=== PATIENT | female | born 1980 ===

== ENCOUNTER 2017-05-01 22:11 | Inpatient (IN) | payer OTHER ==
[2017-05-01 23:04] LABS: URINE BACTERIA RARE (<OCC); URINE BILIRUBIN NEGATIVE (NEGATIVE); URINE BLOOD MODERATE (NEGATIVE); URINE COLOR YELLOW (YELLOW); URINE GLUCOSE (UA) NEG (Normal); URINE KETONE NEGATIVE (NEGATIVE); URINE LEUKOCYTE ESTERASE SMALL Leu/uL (Negative); URINE PROTEIN NEGATIVE (NEGATIVE); URINE UROBILINOGEN 0.2-1.0 mg/dL (0.2-1.0); WBC URINE 11 /hpf (0-5)
[2017-05-01 23:11] LABS: RBC URINE 15 /hpf (0-3)
[2017-05-01 23:18] LABS: BASO % 0.5 % (0.0-2.0); EOS # 0.4 K/uL (0.0-0.7); EOS % 3.7 % (0.0-4.0); HEMATOCRIT 39.5 % (34.0-47.0); LYMPH # 2.8 K/uL (1.0-4.3); LYMPH % 27.3 % (20.0-40.0); MEAN CELL VOLUME 93.9 fl (81.0-99.0); MEAN CORPUSCULAR HEMOGLOBIN 31.2 pg (27.0-31.0); MEAN CORPUSCULAR HGB CONC 33.2 g/dL (33.0-37.0); MEAN PLATELET VOLUME 6.5 fl (7.2-11.7); MONO # 0.7 K/uL (0.0-0.8); MONO % 6.8 % (0.0-10.0); NEUT # 6.3 K/uL (1.8-7.0); NEUT % 61.7 % (50.0-75.0); RED CELL DISTRIBUTION WIDTH 13.2 % (11.5-14.5); WHITE BLOOD COUNT 10.2 K/uL (4.8-10.8)
[2017-05-01 23:23] LABS: ALCOHOL SERUM < 10 mg/dl (0-10)
[2017-05-01 23:25] LABS: PARTIAL THROMBOPLASTIN TIME 26.9 Seconds (25.6-37.1)
[2017-05-01 23:27] LABS: ALB/GLOB RATIO 1.3 (1.0-2.1); ALKALINE PHOSPHATASE 62 U/L (38-126); ALT/SGPT 33 U/L (9-52); AST/SGOT 29 U/L (14-36); BILIRUBIN,TOTAL 0.4 mg/dl (0.2-1.3); BLOOD UREA NITROGEN 14 mg/dl (7-17); CALCIUM 8.9 mg/dL (8.4-10.2); CARBON DIOXIDE 25 mmol/L (22-30); CHLORIDE 106 mmol/L (98-107); GFR AFRICAN-AMERICAN > 60; GLUCOSE,RANDOM 122 mg/dL (65-105); MAGNESIUM 1.9 MG/DL (1.6-2.3); PHOSPHOROUS 3.3 mg/dl (2.5-4.5); SODIUM 139 mmol/l (132-148); TOTAL PROTEIN 7.4 G/DL (6.3-8.2)
--- NOTE | 2017-05-01 23:28 | ED PDOC ---
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 Patient states she ingested a "handful" of Seroquel after arguing with her . States they were left over after being prescribed for insomnia and confirms that at the time she was suicidal. (+) "heart racing" and feeling very sleepy. (-) SOB, chest pain, nausea, vomiting, or hallucinations. Denies taking any other medications, nor drug/alcohol use. Of note, patient previously attempted suicidal when initially diagnosed with depression. PCP: Does not have PCP, but [facility] Past Medical History Reviewed: Historical Data, Nursing Documentation, Vital Signs Vital Signs: Last Vital Signs Temp 98.0 F 05/01/17 22:16 Pulse 125 H 05/01/17 22:16 Resp 20 05/01/17 22:16 BP 125/66 05/01/17 22:16 Pulse Ox 98 05/01/17 22:16 - Medical History PMH: Kidney Stones Denies: No Chronic Diseases, Diabetes, Hepatitis, HIV, HTN, Seizures, Sexually Transmitted Disease - Surgical History Surgical History: No Surg Hx - Family History Family History: States: Diabetes - Living Arrangements Living Arrangements: With Family - Social History Current smoker - smoking cessation education provided: No Ex-Smoker (has not smoked in the last 12 months): No Alcohol: Social (Last drank 2 days ago) Drugs: Prescription medications - Immunization History Hx Influenza Vaccination: No Hx Pneumococcal Vaccination: No - Home Medications Home Medications: Ambulatory Orders Medication Instructions Recorded No Known Home Med 09/12/15 - Allergies Allergies/Adverse Reactions: Allergies Allergy/AdvReac Type Severity Reaction Status Date / Time No Known Allergies Allergy Verified 09/12/15 12:36 Review of Systems ROS Statement: Except As Marked, All Systems Reviewed And Found Negative Constitutional: Positive for: Other ((+) "very sleepy") Cardiovascular: Positive for: Palpitations ("heart racing"). Negative for: Chest Pain Respiratory: Negative for: Shortness of Breath Gastrointestinal: Negative for: Nausea, Vomiting Psych: Positive for: Depression, Suicidal ideation. Negative for: Other ((-) hallucinations) Physical Exam - Reviewed Nursing Documentation Reviewed: Yes - Physical Exam Appears: Positive for: No Acute Distress (sleepy) Head Exam: Positive for: ATRAUMATIC, NORMOCEPHALIC Skin: Positive for: Warm, Dry Eye Exam: Positive for: EOMI, PERRL, Conjunctival injection ENT: Positive for: Pharynx Is (clear) Neck: Positive for: Painless ROM, Supple Cardiovascular/Chest: Positive for: Regular Rate, Rhythm, Tachycardia (regular rhythm). Negative for: Murmur Respiratory: Positive for: Normal Breath Sounds. Negative for: Wheezing, Respiratory Distress Gastrointestinal/Abdominal: Positive for: Soft. Negative for: Tenderness, Mass , Distended, Guarding Back: Positive for: Normal Inspection. Negative for: Decreased ROM Extremity: Positive for: Normal ROM. Negative for: Deformity Lymphatic: Negative for: Adenopathy Neurologic/Psych: Positive for: Oriented (x3), Mood/Affect (depressed mood and affect), Other (Sleepy but easily arousable and able to maintain conversation). Negative for: Motor/Sensory Deficits - Laboratory Results Result Diagrams: 05/03/17 05:30 05/03/17 05:30 - ECG ECG: Positive for: Interpreted By Me ECG Rhythm: Positive for: Normal QRS, Normal ST Segment, Sinus Rhythm O2 Sat by Pulse Oximetry: 98 (RA) Pulse Ox Interpretation: Normal - Critical Care Total Time (In Min): 30 Documented Critical Care: Time excludes all time spent performint seperately billable procedures Medical Decision Making Medical Decision Makin Initial impression: suicidal attempt and Risperdal overdose Initial plan: * EKG * Acetaminophen * EtOH serum * UDrug screen * Magnesium * Phosphorus * Salicylate * Poison control consult * UPreg * UDip * PTT/PT * UCx * 1:1 OBS * UA * Re-eval Pt with overdose of sedative. Poison recommends caution for seizure activity and deep lethargy. Labs unremarkable Needs hospitalization for observation and inpatient psych consult. [facility] for hospitalization. [facility] pt findings and plan of care. [id number] Pt suddenly became very lethargic and heart rate decreased to 60s and SBP to 60s. Pt reports that she just feels like her head feels funny. Denies pain. Appears pale. Just prior to this she reported hunger and was asking to eat. IVF ordered and pt placed in Trendelenberg with improvement of vitals. Possible syncopal episode. [facility] Banks Hospitalist for ICU placement. [facility] again who advises continue supportive treatment. Asked and patient again if any other meds taken or accessible and both deny. Scribe Attestation: Documented by Basia Hunt acting as a scribe for Anne Belle MD. Scribe Attestation: All medical record entries made by the Scribe were at my direction and personally dictated by me. I have reviewed the chart and agree that the record accurately reflects my personal performance of the history, physical exam, medical decision making, and the department course for this patient. I have also personally directed, reviewed, and agree with the discharge instructions and disposition. Disposition - Clinical Impression Clinical Impression: Sedative overdose, Suicidal overdose, Depression Counseled Patient/Family Regarding: Studies Performed, Diagnosis - Disposition Disposition Time: 23:00 Condition: CRITICAL - Pt Status Changed To: Hospital Disposition Of: Observation - POA Present On Arrival: None
--- NOTE | 2017-05-02 | CP.PCM.CON ---
History of Present Illness - History of Present Illness History of Present Illness: Attending: Juan Miguel Lilly MD Chief Complaint: Drug Overdose The patient was seen and examined in the Ed HPI: The hx was obtained from the patient, her and after review of the medical records. She is a 37 years old female with hx of depression and prior suicide attempt, brought to the ED after she overdosed on Seroquel. The referred that he called the Police after an argument with his . When the police left, she ingested a handful of Seroquel in a suicidal attempt. She became very somnolent with unsteady gait. No vomits nor chest pain. In the ED she was initially tachycardic but suffered an episode of abrupt Bradycardia with HR in 60s and SBP 60s with the patient becoming lethargic. She was given Bolus Normal saline and BP improved. PMH: Kidney Stones; Depressive disorder PSH: denies Surgeries SH: No illegal drug use; Never Smoked; occasional Alcohol; Works at [employer] FH: Mother with DM Allergies: NKDA Seasonal Allergies Medication: Has not been taking medication for over 6 months PCP: Does not have PCP, but sees doctor present at [facility] Review of Systems - Review of Systems Review of Systems: Review of system is limited because of the patient condition Past Patient History - Infectious Disease Hx of Infectious Diseases: None - Past Social History Smoking Status: Never Smoked Chewing Tobacco Use: No Cigar Use: No Alcohol: Social (Last drank 2 days ago) Drugs: Prescription medications, Inhalants Home Situation {Lives}: Alone - CARDIAC Hx Cardiac Disorders: No Hx Hypertension: No - PULMONARY Hx Respiratory Disorders: No Hx Tuberculosis: No - NEUROLOGICAL Hx Seizures: No - HEENT Hx HEENT Problems: No - RENAL Hx Kidney Stones: Yes - ENDOCRINE/METABOLIC Hx Endocrine Disorders: No - HEMATOLOGICAL/ONCOLOGICAL Hx Blood Disorders: No Hx Human Immunodeficiency Virus (HIV): No - INTEGUMENTARY Hx Dermatological Problems: No - MUSCULOSKELETAL/RHEUMATOLOGICAL Hx Musculoskeletal Disorders: No - GASTROINTESTINAL Hx Gastrointestinal Disorders: No - GENITOURINARY/GYNECOLOGICAL Hx Genitourinary Disorders: No Hx Sexually Transmitted Disorders: No - PSYCHIATRIC Hx Depression: Yes Hx Substance Use: No - SURGICAL HISTORY Hx Surgeries: No - ANESTHESIA Hx Anesthesia: No Meds Allergies/Adverse Reactions: Allergies Allergy/AdvReac Type Severity Reaction Status Date / Time No Known Allergies Allergy Verified 09/12/15 12:36 - Medications Medications: Current Medications Lorazepam (Ativan) 1 mg IVP Q4H PRN PRN Reason: Seizure activity Physical Exam - Constitutional Appears: No Acute Distress - Head Exam Head Exam: ATRAUMATIC, NORMAL INSPECTION, NORMOCEPHALIC - Eye Exam Eye Exam: EOMI, Normal appearance Pupil Exam: NORMAL ACCOMODATION, PERRL - ENT Exam ENT Exam: Mucous Membranes Moist, Normal Exam - Neck Exam Neck exam: Positive for: Full Rom, Normal Inspection. Negative for: Tenderness - Respiratory Exam Respiratory Exam: Clear to Auscultation Bilateral. absent: Rales, Rhonchi, Wheezes - Cardiovascular Exam Cardiovascular Exam: REGULAR RHYTHM, RRR, +S1, +S2. absent: Gallop, JVD - GI/Abdominal Exam GI & Abdominal Exam: Normal Bowel Sounds, Soft. absent: Mass, Organomegaly, Tenderness - Rectal Exam Rectal Exam: Deferred - Extremities Exam Extremities exam: Positive for: full ROM, normal inspection. Negative for: calf tenderness, pedal edema - Back Exam Back exam: NORMAL INSPECTION. absent: CVA tenderness (L), CVA tenderness (R) - Neurological Exam Neurological exam: Alert, CN II-XII Intact, Oriented x3, Reflexes Normal - Psychiatric Exam Psychiatric exam: Normal Affect, Normal Mood - Skin Skin Exam: Dry, Intact, Normal Color, Warm Results - Vital Signs Recent Vital Signs: Last Vital Signs Temp 98.0 F 05/01/17 22:16 Pulse 125 H 05/01/17 22:16 Resp 20 05/01/17 22:16 BP 125/66 05/01/17 22:16 Pulse Ox 98 05/01/17 23:52 - Labs Result Diagrams: 05/01/17 23:00 05/01/17 23:00 Labs: Laboratory Results - last 24 hr 05/01/17 05/01/17 05/01/17 22:37 22:37 23:00 WBC RBC Hgb Hct MCV MCH MCHC RDW Plt Count MPV Neut % (Auto) Lymph % (Auto) [place] % (Auto) Eos % (Auto) Baso % (Auto) Neut # Lymph # [place] # Eos # Baso # PT INR APTT Sodium 139 Potassium 4.0 Chloride 106 Carbon Dioxide 25 Anion Gap 12 BUN 14 Creatinine 0.7 Est GFR ( Amer) > 60 Est GFR (Non-Af Amer) > 60 POC Glucose (mg/dL) Random Glucose 122 H Calcium 8.9 Phosphorus 3.3 Magnesium 1.9 Total Bilirubin 0.4 AST 29 ALT 33 Alkaline Phosphatase 62 Total Protein 7.4 Albumin 4.1 Globulin 3.3 Albumin/Globulin Ratio 1.3 Urine Color Yellow Urine Clarity Slighty-cloudy Urine pH 6.0 Ur Specific [place] 1.020 Urine Protein Negative Urine Glucose (UA) Neg Urine Ketones Negative Urine Blood Moderate Urine Nitrate Negative Urine Bilirubin Negative Urine Urobilinogen 0.2-1.0 Ur Leukocyte Esterase Small Urine RBC (Auto) 15 H Urine Microscopic WBC 11 H Ur Squamous Epith Cells 2 Urine Bacteria Rare Salicylates Urine Opiates Screen Negative Urine Methadone Screen Negative Acetaminophen Ur Barbiturates Screen Negative Ur Phencyclidine Scrn Negative Ur Amphetamines Screen Negative U Benzodiazepines Scrn Negative U Oth Cocaine Metabols Negative U Cannabinoids Screen Negative Alcohol, Quantitative < 10 05/01/17 05/01/17 05/01/17 23:00 23:00 23:00 WBC 10.2 RBC 4.20 Hgb 13.1 Hct 39.5 MCV 93.9 MCH 31.2 H MCHC 33.2 RDW 13.2 Plt Count 239 MPV 6.5 L Neut % (Auto) 61.7 Lymph % (Auto) 27.3 [place] % (Auto) 6.8 Eos % (Auto) 3.7 Baso % (Auto) 0.5 Neut # 6.3 Lymph # 2.8 [place] # 0.7 Eos # 0.4 Baso # 0.0 PT 10.5 INR 1.0 APTT 26.9 Sodium Potassium Chloride Carbon Dioxide Anion Gap BUN Creatinine Est GFR ( Amer) Est GFR (Non-Af Amer) POC Glucose (mg/dL) Random Glucose Calcium Phosphorus Magnesium Total Bilirubin AST ALT Alkaline Phosphatase Total Protein Albumin Globulin Albumin/Globulin Ratio Urine Color Urine Clarity Urine pH Ur Specific [place] Urine Protein Urine Glucose (UA) Urine Ketones Urine Blood Urine Nitrate Urine Bilirubin Urine Urobilinogen Ur Leukocyte Esterase Urine RBC (Auto) Urine Microscopic WBC Ur Squamous Epith Cells Urine Bacteria Salicylates < 1.0 Urine Opiates Screen Urine Methadone Screen Acetaminophen < 10.0 L Ur Barbiturates Screen Ur Phencyclidine Scrn Ur Amphetamines Screen U Benzodiazepines Scrn U Oth Cocaine Metabols U Cannabinoids Screen Alcohol, Quantitative 05/01/17 23:53 WBC RBC Hgb Hct MCV MCH MCHC RDW Plt Count MPV Neut % (Auto) Lymph % (Auto) [place] % (Auto) Eos % (Auto) Baso % (Auto) Neut # Lymph # [place] # Eos # Baso # PT INR APTT Sodium Potassium Chloride Carbon Dioxide Anion Gap BUN Creatinine Est GFR ( Amer) Est GFR (Non-Af Amer) POC Glucose (mg/dL) 91 Random Glucose Calcium Phosphorus Magnesium Total Bilirubin AST ALT Alkaline Phosphatase Total Protein Albumin Globulin Albumin/Globulin Ratio Urine Color Urine Clarity Urine pH Ur Specific [place] Urine Protein Urine Glucose (UA) Urine Ketones Urine Blood Urine Nitrate Urine Bilirubin Urine Urobilinogen Ur Leukocyte Esterase Urine RBC (Auto) Urine Microscopic WBC Ur Squamous Epith Cells Urine Bacteria Salicylates Urine Opiates Screen Urine Methadone Screen Acetaminophen Ur Barbiturates Screen Ur Phencyclidine Scrn Ur Amphetamines Screen U Benzodiazepines Scrn U Oth Cocaine Metabols U Cannabinoids Screen Alcohol, Quantitative - Imaging and Cardiology Chest x-ray Additional comment: Clear, no infiltrate Assessment & Plan - Assessment and Plan (Free Text) Assessment: #. Suicide Attempt #. Overdose on [place] #. Depressive Plan: 37 years old female with hx of depression and prior suicide attempt, brought to the ED after she overdosed on Seroquel. She ingested a handful of Seroquel in a suicidal attempt. She became very somnolent with unsteady gait. No vomits nor chest pain. In the ED she was initially tachycardic but suffered an episode of abrupt Bradycardia with HR in 60s and SBP 60s with the patient becoming lethargic. #. Suicide Attempt with Overdose on Seroquel - Admit to ICU - Cardiac Monitoring - Seizure Precaution with bed rails up and padded - IV Fluids for Hypotension #. Depressive - Consult Dr Brower Psychiatry #. DVT prophylaxis with Lovenox 3. code Status: Full - Date & Time Date: 05/02/17 Time: 00:00
[2017-05-02] MEDS ORDERED: Sodium Chloride 0.9% 1,000 ML IV STA (00:08)
[2017-05-02] MEDS: Dextrose 5%/0.9% NS 1,000 ML IV SCH ×2 (01:15→04:32)
[2017-05-02] MEDS: Sodium Chloride 0.9% 1,000 ML IV SCH ×5 (02:00→16:49)
[2017-05-02 07:14] LABS: HEMATOCRIT 31.4 % (34.0-47.0); MEAN CELL VOLUME 95.1 fl (81.0-99.0); MEAN CORPUSCULAR HEMOGLOBIN 31.3 pg (27.0-31.0); MEAN CORPUSCULAR HGB CONC 32.9 g/dL (33.0-37.0); RED CELL DISTRIBUTION WIDTH 13.2 % (11.5-14.5); WHITE BLOOD COUNT 8.8 K/uL (4.8-10.8)
[2017-05-02 07:38] LABS: BLOOD UREA NITROGEN 9 mg/dl (7-17); CARBON DIOXIDE 21 mmol/L (22-30); CHLORIDE 115 mmol/L (98-107); GFR AFRICAN-AMERICAN > 60; GLUCOSE,RANDOM 117 mg/dL (65-105); POTASSIUM 3.8 MMOL/L (3.6-5.0); SODIUM 142 mmol/l (132-148)
--- NOTE | 2017-05-02 08:22 | RAD ---
HISTORY: overdose COMPARISON: No prior. FINDINGS: LUNGS: No active pulmonary disease. PLEURA: No significant pleural effusion identified, no pneumothorax apparent. CARDIOVASCULAR: Normal. OSSEOUS STRUCTURES: No significant abnormalities. VISUALIZED UPPER ABDOMEN: Normal. OTHER FINDINGS: None. IMPRESSION: No acute cardiopulmonary disease appreciated.
[2017-05-02] MEDS: Enoxaparin 40 mg Syringe SC SCH (09:02)
--- NOTE | 2017-05-02 12:35 | CP.CCUPN ---
CCU Subjective - Physician Review Subjective (Free Text): Sleeping, but easily arousable to verbal stimuli, at the bedside. Remains under 1:1, denies any suicidal ideation at this time. BP levels improved after additional fluid challenges, total recd so far approx. 2 liters. SBP up to 106, HR 99. No recurrent bradycardic episodes. Denies any dizziness, headaches, palpitations. Other vitals and I/O's reviewed. ROS: No other pertinent negs or positives on 10+ system review. PMSFH: All other Nursing and physician documentation reviewed to date; no new pertinent info noted relevant to current medical problems. IMPRESSION / MAJOR PROBLEMS NOW: 1. Drug ingestion / Suicide Attempt with Seroquel 2. Anemia, with mixed indices; not related to acute blood loss, r/o Lab error PLAN: 1. No need for urgent / emergent airway protection nor assisted breathing support. 2. Seizure precautions 3. 1:1 supervision unless cleared by Psychiatry. 4. IVF hydration 5. Check repeat CBC, no need for acute transfusional therapy. 6. Stable for regular medical bed transfer for further observation. CCU Objective - Vital Signs / Intake & Output Vital Signs (Last 4 hours): Vital Signs Temp Pulse Resp BP Pulse Ox 05/02/17 12:00 98.2 F 95 H 17 100/58 L 98 05/02/17 10:00 108 H 18 97/52 L 97 Intake and Output (Last 8hrs): Intake & Output 05/01/17 05/02/17 05/02/17 22:59 06:59 14:59 Intake Total 1345 240 Output Total 375 400 Balance 970 -160 Weight 152 lb Intake: IV 1325 Oral 20 240 Output: Urine 375 400 Urine, Voided 375 400 - Physical Exam Head: Positive for: Atraumatic, Normocephalic Pupils: Positive for: PERRL Extroacular Muscles: Positive for: EOMI. Negative for: Gaze Palsy Conjunctiva: Positive for: Normal. Negative for: Icteric Mouth: Positive for: Moist Mucous Membranes Neck: Positive for: Normal Range of Motion. Negative for: JVD Respiratory/Chest: Positive for: Clear to Auscultation Cardiovascular: Positive for: Regular Rate and Rhythm. Negative for: Murmurs, Bradycardic, Rub Abdomen: Positive for: Normal Bowel Sounds. Negative for: Tenderness, Distention, Mass/Organomegaly Lower Extremity: Positive for: Normal Inspection Neurological: Positive for: GCS=15, Motor Func Grossly Intact, Normal Sensory Function Skin: Positive for: Warm, Dry. Negative for: Rashes Psychiatric: Positive for: Alert, Oriented x 3. Negative for: Suicidal Ideation - Medications Active Medications: Active Medications Generic Name Dose Route Start Last Admin Trade Name Freq PRN Reason Stop Dose Admin Enoxaparin Sodium 40 mg 05/02/17 09:00 05/02/17 09:02 Lovenox SC 40 mg DAILY FREDA Administration Protocol Dextrose/Sodium Chloride 1,000 mls @ 125 mls/hr 05/02/17 01:00 05/02/17 01:15 Dextrose 5%/0.9% Ns 1000 Ml IV 05/03/17 00:53 125 mls/hr .Q8H FREDA Administration Sodium Chloride 1,000 mls @ 1,000 mls/hr 05/02/17 02:00 05/02/17 02:00 Sodium Chloride 0.9% IV 05/03/17 01:53 1,000 mls/hr .Q1H FREDA Administration Sodium Chloride 1,000 mls @ 1,000 mls/hr 05/02/17 03:45 05/02/17 03:45 Sodium Chloride 0.9% IV 05/03/17 03:41 1,000 mls/hr .Q1H FREDA Administration Lorazepam 1 mg 05/01/17 23:46 Ativan IVP Q4H PRN Seizure activity - Patient Studies Lab Studies: Lab Studies 05/02/17 05/02/17 05/02/17 Range/Units 07:00 06:50 06:50 WBC 8.8 (4.8-10.8) K/uL RBC 3.30 L (3.80-5.20) Mil/uL Hgb 10.3 L D (12.0-16.0) g/dL Hct 31.4 L (34.0-47.0) % MCV 95.1 (81.0-99.0) fl MCH 31.3 H (27.0-31.0) pg MCHC 32.9 L (33.0-37.0) g/dL RDW 13.2 (11.5-14.5) % Plt Count 180 (130-400) K/uL MPV (7.2-11.7) fl Neut % (Auto) (50.0-75.0) % Lymph % (Auto) (20.0-40.0) % [place] % (Auto) (0.0-10.0) % Eos % (Auto) (0.0-4.0) % Baso % (Auto) (0.0-2.0) % Neut # (1.8-7.0) K/uL Lymph # (1.0-4.3) K/uL [place] # (0.0-0.8) K/uL Eos # (0.0-0.7) K/uL Baso # (0.0-0.2) K/uL PT (9.8-13.1) Seconds INR (0.9-1.2) APTT (25.6-37.1) Seconds Sodium 142 (132-148) mmol/l Potassium 3.8 (3.6-5.0) MMOL/L Chloride 115 H (98-107) mmol/L Carbon Dioxide 21 L (22-30) mmol/L Anion Gap 10 (10-20) BUN 9 (7-17) mg/dl Creatinine 0.7 (0.7-1.2) mg/dl Est GFR ( Amer) > 60 Est GFR (Non-Af Amer) > 60 POC Glucose (mg/dL) (65-110) mg/dL Random Glucose 117 H (65-105) mg/dL Calcium 7.0 L (8.4-10.2) mg/dL Phosphorus (2.5-4.5) mg/dl Magnesium (1.6-2.3) MG/DL Total Bilirubin (0.2-1.3) mg/dl AST (14-36) U/L ALT (9-52) U/L Alkaline Phosphatase (38-126) U/L Total Protein (6.3-8.2) G/DL Albumin (3.5-5.0) g/dL Globulin (2.2-3.9) gm/dL Albumin/Globulin Ratio (1.0-2.1) Vitamin B12 460 (239-931) pg/mL TSH 3rd Generation 1.00 (0.46-4.68) mIU/ML Urine Color (YELLOW) Urine Clarity (Clear) Urine pH (5.0-8.0) Ur Specific Waves (1.003-1.030) Urine Protein (NEGATIVE) mg/dL Urine Glucose (UA) (Normal) mg/dL Urine Ketones (NEGATIVE) mg/dL Urine Blood (NEGATIVE) Urine Nitrate (NEGATIVE) Urine Bilirubin (NEGATIVE) Urine Urobilinogen (0.2-1.0) mg/dL Ur Leukocyte Esterase (Negative) Ivy/uL Urine RBC (Auto) (0-3) /hpf Urine Microscopic WBC (0-5) /hpf Ur Squamous Epith Cells (0-5) /hpf Urine Bacteria (<OCC) Salicylates mg/dl Urine Opiates Screen (NEGATIVE) Urine Methadone Screen (NEGATIVE) Acetaminophen (10.0-30.0) ug/ml Ur Barbiturates Screen (NEGATIVE) Ur Phencyclidine Scrn (NEGATIVE) Ur Amphetamines Screen (NEGATIVE) U Benzodiazepines Scrn (NEGATIVE) U Oth Cocaine Metabols (NEGATIVE) U Cannabinoids Screen (NEGATIVE) Alcohol, Quantitative (0-10) mg/dl 05/02/17 05/01/17 05/01/17 Range/Units 01:58 23:53 23:00 WBC (4.8-10.8) K/uL RBC (3.80-5.20) Mil/uL Hgb (12.0-16.0) g/dL Hct (34.0-47.0) % MCV (81.0-99.0) fl MCH (27.0-31.0) pg MCHC (33.0-37.0) g/dL RDW (11.5-14.5) % Plt Count (130-400) K/uL MPV (7.2-11.7) fl Neut % (Auto) (50.0-75.0) % Lymph % (Auto) (20.0-40.0) % [place] % (Auto) (0.0-10.0) % Eos % (Auto) (0.0-4.0) % Baso % (Auto) (0.0-2.0) % Neut # (1.8-7.0) K/uL Lymph # (1.0-4.3) K/uL [place] # (0.0-0.8) K/uL Eos # (0.0-0.7) K/uL Baso # (0.0-0.2) K/uL PT 10.5 (9.8-13.1) Seconds INR 1.0 (0.9-1.2) APTT 26.9 (25.6-37.1) Seconds Sodium (132-148) mmol/l Potassium (3.6-5.0) MMOL/L Chloride (98-107) mmol/L Carbon Dioxide (22-30) mmol/L Anion Gap (10-20) BUN (7-17) mg/dl Creatinine (0.7-1.2) mg/dl Est GFR ( Amer) Est GFR (Non-Af Amer) POC Glucose (mg/dL) 116 H 91 (65-110) mg/dL Random Glucose (65-105) mg/dL Calcium (8.4-10.2) mg/dL Phosphorus (2.5-4.5) mg/dl Magnesium (1.6-2.3) MG/DL Total Bilirubin (0.2-1.3) mg/dl AST (14-36) U/L ALT (9-52) U/L Alkaline Phosphatase (38-126) U/L Total Protein (6.3-8.2) G/DL Albumin (3.5-5.0) g/dL Globulin (2.2-3.9) gm/dL Albumin/Globulin Ratio (1.0-2.1) Vitamin B12 (239-931) pg/mL TSH 3rd Generation (0.46-4.68) mIU/ML Urine Color (YELLOW) Urine Clarity (Clear) Urine pH (5.0-8.0) Ur Specific Waves (1.003-1.030) Urine Protein (NEGATIVE) mg/dL Urine Glucose (UA) (Normal) mg/dL Urine Ketones (NEGATIVE) mg/dL Urine Blood (NEGATIVE) Urine Nitrate (NEGATIVE) Urine Bilirubin (NEGATIVE) Urine Urobilinogen (0.2-1.0) mg/dL Ur Leukocyte Esterase (Negative) Ivy/uL Urine RBC (Auto) (0-3) /hpf Urine Microscopic WBC (0-5) /hpf Ur Squamous Epith Cells (0-5) /hpf Urine Bacteria (<OCC) Salicylates mg/dl Urine Opiates Screen (NEGATIVE) Urine Methadone Screen (NEGATIVE) Acetaminophen (10.0-30.0) ug/ml Ur Barbiturates Screen (NEGATIVE) Ur Phencyclidine Scrn (NEGATIVE) Ur Amphetamines Screen (NEGATIVE) U Benzodiazepines Scrn (NEGATIVE) U Oth Cocaine Metabols (NEGATIVE) U Cannabinoids Screen (NEGATIVE) Alcohol, Quantitative (0-10) mg/dl 05/01/17 05/01/17 05/01/17 Range/Units 23:00 23:00 23:00 WBC 10.2 (4.8-10.8) K/uL RBC 4.20 (3.80-5.20) Mil/uL Hgb 13.1 (12.0-16.0) g/dL Hct 39.5 (34.0-47.0) % MCV 93.9 (81.0-99.0) fl MCH 31.2 H (27.0-31.0) pg MCHC 33.2 (33.0-37.0) g/dL RDW 13.2 (11.5-14.5) % Plt Count 239 (130-400) K/uL MPV 6.5 L (7.2-11.7) fl Neut % (Auto) 61.7 (50.0-75.0) % Lymph % (Auto) 27.3 (20.0-40.0) % [place] % (Auto) 6.8 (0.0-10.0) % Eos % (Auto) 3.7 (0.0-4.0) % Baso % (Auto) 0.5 (0.0-2.0) % Neut # 6.3 (1.8-7.0) K/uL Lymph # 2.8 (1.0-4.3) K/uL [place] # 0.7 (0.0-0.8) K/uL Eos # 0.4 (0.0-0.7) K/uL Baso # 0.0 (0.0-0.2) K/uL PT (9.8-13.1) Seconds INR (0.9-1.2) APTT (25.6-37.1) Seconds Sodium 139 (132-148) mmol/l Potassium 4.0 (3.6-5.0) MMOL/L Chloride 106 (98-107) mmol/L Carbon Dioxide 25 (22-30) mmol/L Anion Gap 12 (10-20) BUN 14 (7-17) mg/dl Creatinine 0.7 (0.7-1.2) mg/dl Est GFR ( Amer) > 60 Est GFR (Non-Af Amer) > 60 POC Glucose (mg/dL) (65-110) mg/dL Random Glucose 122 H (65-105) mg/dL Calcium 8.9 (8.4-10.2) mg/dL Phosphorus 3.3 (2.5-4.5) mg/dl Magnesium 1.9 (1.6-2.3) MG/DL Total Bilirubin 0.4 (0.2-1.3) mg/dl AST 29 (14-36) U/L ALT 33 (9-52) U/L Alkaline Phosphatase 62 (38-126) U/L Total Protein 7.4 (6.3-8.2) G/DL Albumin 4.1 (3.5-5.0) g/dL Globulin 3.3 (2.2-3.9) gm/dL Albumin/Globulin Ratio 1.3 (1.0-2.1) Vitamin B12 (239-931) pg/mL TSH 3rd Generation (0.46-4.68) mIU/ML Urine Color (YELLOW) Urine Clarity (Clear) Urine pH (5.0-8.0) Ur Specific Waves (1.003-1.030) Urine Protein (NEGATIVE) mg/dL Urine Glucose (UA) (Normal) mg/dL Urine Ketones (NEGATIVE) mg/dL Urine Blood (NEGATIVE) Urine Nitrate (NEGATIVE) Urine Bilirubin (NEGATIVE) Urine Urobilinogen (0.2-1.0) mg/dL Ur Leukocyte Esterase (Negative) Ivy/uL Urine RBC (Auto) (0-3) /hpf Urine Microscopic WBC (0-5) /hpf Ur Squamous Epith Cells (0-5) /hpf Urine Bacteria (<OCC) Salicylates < 1.0 mg/dl Urine Opiates Screen (NEGATIVE) Urine Methadone Screen (NEGATIVE) Acetaminophen < 10.0 L (10.0-30.0) ug/ml Ur Barbiturates Screen (NEGATIVE) Ur Phencyclidine Scrn (NEGATIVE) Ur Amphetamines Screen (NEGATIVE) U Benzodiazepines Scrn (NEGATIVE) U Oth Cocaine Metabols (NEGATIVE) U Cannabinoids Screen (NEGATIVE) Alcohol, Quantitative < 10 (0-10) mg/dl 05/01/17 05/01/17 Range/Units 22:37 22:37 WBC (4.8-10.8) K/uL RBC (3.80-5.20) Mil/uL Hgb (12.0-16.0) g/dL Hct (34.0-47.0) % MCV (81.0-99.0) fl MCH (27.0-31.0) pg MCHC (33.0-37.0) g/dL RDW (11.5-14.5) % Plt Count (130-400) K/uL MPV (7.2-11.7) fl Neut % (Auto) (50.0-75.0) % Lymph % (Auto) (20.0-40.0) % [place] % (Auto) (0.0-10.0) % Eos % (Auto) (0.0-4.0) % Baso % (Auto) (0.0-2.0) % Neut # (1.8-7.0) K/uL Lymph # (1.0-4.3) K/uL [place] # (0.0-0.8) K/uL Eos # (0.0-0.7) K/uL Baso # (0.0-0.2) K/uL PT (9.8-13.1) Seconds INR (0.9-1.2) APTT (25.6-37.1) Seconds Sodium (132-148) mmol/l Potassium (3.6-5.0) MMOL/L Chloride (98-107) mmol/L Carbon Dioxide (22-30) mmol/L Anion Gap (10-20) BUN (7-17) mg/dl Creatinine (0.7-1.2) mg/dl Est GFR ( Amer) Est GFR (Non-Af Amer) POC Glucose (mg/dL) (65-110) mg/dL Random Glucose (65-105) mg/dL Calcium (8.4-10.2) mg/dL Phosphorus (2.5-4.5) mg/dl Magnesium (1.6-2.3) MG/DL Total Bilirubin (0.2-1.3) mg/dl AST (14-36) U/L ALT (9-52) U/L Alkaline Phosphatase (38-126) U/L Total Protein (6.3-8.2) G/DL Albumin (3.5-5.0) g/dL Globulin (2.2-3.9) gm/dL Albumin/Globulin Ratio (1.0-2.1) Vitamin B12 (239-931) pg/mL TSH 3rd Generation (0.46-4.68) mIU/ML Urine Color Yellow (YELLOW) Urine Clarity Slighty-cloudy (Clear) Urine pH 6.0 (5.0-8.0) Ur Specific Waves 1.020 (1.003-1.030) Urine Protein Negative (NEGATIVE) mg/dL Urine Glucose (UA) Neg (Normal) mg/dL Urine Ketones Negative (NEGATIVE) mg/dL Urine Blood Moderate (NEGATIVE) Urine Nitrate Negative (NEGATIVE) Urine Bilirubin Negative (NEGATIVE) Urine Urobilinogen 0.2-1.0 (0.2-1.0) mg/dL Ur Leukocyte Esterase Small (Negative) Ivy/uL Urine RBC (Auto) 15 H (0-3) /hpf Urine Microscopic WBC 11 H (0-5) /hpf Ur Squamous Epith Cells 2 (0-5) /hpf Urine Bacteria Rare (<OCC) Salicylates mg/dl Urine Opiates Screen Negative (NEGATIVE) Urine Methadone Screen Negative (NEGATIVE) Acetaminophen (10.0-30.0) ug/ml Ur Barbiturates Screen Negative (NEGATIVE) Ur Phencyclidine Scrn Negative (NEGATIVE) Ur Amphetamines Screen Negative (NEGATIVE) U Benzodiazepines Scrn Negative (NEGATIVE) U Oth Cocaine Metabols Negative (NEGATIVE) U Cannabinoids Screen Negative (NEGATIVE) Alcohol, Quantitative (0-10) mg/dl Laboratory Results - last 24 hr 05/01/17 05/01/17 05/01/17 22:37 22:37 23:00 WBC RBC Hgb Hct MCV MCH MCHC RDW Plt Count MPV Neut % (Auto) Lymph % (Auto) [place] % (Auto) Eos % (Auto) Baso % (Auto) Neut # Lymph # [place] # Eos # Baso # PT INR APTT Sodium 139 Potassium 4.0 Chloride 106 Carbon Dioxide 25 Anion Gap 12 BUN 14 Creatinine 0.7 Est GFR ( Amer) > 60 Est GFR (Non-Af Amer) > 60 POC Glucose (mg/dL) Random Glucose 122 H Calcium 8.9 Phosphorus 3.3 Magnesium 1.9 Total Bilirubin 0.4 AST 29 ALT 33 Alkaline Phosphatase 62 Total Protein 7.4 Albumin 4.1 Globulin 3.3 Albumin/Globulin Ratio 1.3 Vitamin B12 TSH 3rd Generation Urine Color Yellow Urine Clarity Slighty-cloudy Urine pH 6.0 Ur Specific Waves 1.020 Urine Protein Negative Urine Glucose (UA) Neg Urine Ketones Negative Urine Blood Moderate Urine Nitrate Negative Urine Bilirubin Negative Urine Urobilinogen 0.2-1.0 Ur Leukocyte Esterase Small Urine RBC (Auto) 15 H Urine Microscopic WBC 11 H Ur Squamous Epith Cells 2 Urine Bacteria Rare Salicylates Urine Opiates Screen Negative Urine Methadone Screen Negative Acetaminophen Ur Barbiturates Screen Negative Ur Phencyclidine Scrn Negative Ur Amphetamines Screen Negative U Benzodiazepines Scrn Negative U Oth Cocaine Metabols Negative U Cannabinoids Screen Negative Alcohol, Quantitative < 10 05/01/17 05/01/17 05/01/17 23:00 23:00 23:00 WBC 10.2 RBC 4.20 Hgb 13.1 Hct 39.5 MCV 93.9 MCH 31.2 H MCHC 33.2 RDW 13.2 Plt Count 239 MPV 6.5 L Neut % (Auto) 61.7 Lymph % (Auto) 27.3 [place] % (Auto) 6.8 Eos % (Auto) 3.7 Baso % (Auto) 0.5 Neut # 6.3 Lymph # 2.8 [place] # 0.7 Eos # 0.4 Baso # 0.0 PT 10.5 INR 1.0 APTT 26.9 Sodium Potassium Chloride Carbon Dioxide Anion Gap BUN Creatinine Est GFR ( Amer) Est GFR (Non-Af Amer) POC Glucose (mg/dL) Random Glucose Calcium Phosphorus Magnesium Total Bilirubin AST ALT Alkaline Phosphatase Total Protein Albumin Globulin Albumin/Globulin Ratio Vitamin B12 TSH 3rd Generation Urine Color Urine Clarity Urine pH Ur Specific Waves Urine Protein Urine Glucose (UA) Urine Ketones Urine Blood Urine Nitrate Urine Bilirubin Urine Urobilinogen Ur Leukocyte Esterase Urine RBC (Auto) Urine Microscopic WBC Ur Squamous Epith Cells Urine Bacteria Salicylates < 1.0 Urine Opiates Screen Urine Methadone Screen Acetaminophen < 10.0 L Ur Barbiturates Screen Ur Phencyclidine Scrn Ur Amphetamines Screen U Benzodiazepines Scrn U Oth Cocaine Metabols U Cannabinoids Screen Alcohol, Quantitative 12/05/02/17 05/02/17 23:53 01:58 06:50 WBC 8.8 RBC 3.30 L Hgb 10.3 L D Hct 31.4 L MCV 95.1 MCH 31.3 H MCHC 32.9 L RDW 13.2 Plt Count 180 MPV Neut % (Auto) Lymph % (Auto) [place] % (Auto) Eos % (Auto) Baso % (Auto) Neut # Lymph # [place] # Eos # Baso # PT INR APTT Sodium Potassium Chloride Carbon Dioxide Anion Gap BUN Creatinine Est GFR ( Amer) Est GFR (Non-Af Amer) POC Glucose (mg/dL) 91 116 H Random Glucose Calcium Phosphorus Magnesium Total Bilirubin AST ALT Alkaline Phosphatase Total Protein Albumin Globulin Albumin/Globulin Ratio Vitamin B12 TSH 3rd Generation Urine Color Urine Clarity Urine pH Ur Specific Waves Urine Protein Urine Glucose (UA) Urine Ketones Urine Blood Urine Nitrate Urine Bilirubin Urine Urobilinogen Ur Leukocyte Esterase Urine RBC (Auto) Urine Microscopic WBC Ur Squamous Epith Cells Urine Bacteria Salicylates Urine Opiates Screen Urine Methadone Screen Acetaminophen Ur Barbiturates Screen Ur Phencyclidine Scrn Ur Amphetamines Screen U Benzodiazepines Scrn U Oth Cocaine Metabols U Cannabinoids Screen Alcohol, Quantitative 05/02/17 05/02/17 06:50 07:00 WBC RBC Hgb Hct MCV MCH MCHC RDW Plt Count MPV Neut % (Auto) Lymph % (Auto) [place] % (Auto) Eos % (Auto) Baso % (Auto) Neut # Lymph # [place] # Eos # Baso # PT INR APTT Sodium 142 Potassium 3.8 Chloride 115 H Carbon Dioxide 21 L Anion Gap 10 BUN 9 Creatinine 0.7 Est GFR ( Amer) > 60 Est GFR (Non-Af Amer) > 60 POC Glucose (mg/dL) Random Glucose 117 H Calcium 7.0 L Phosphorus Magnesium Total Bilirubin AST ALT Alkaline Phosphatase Total Protein Albumin Globulin Albumin/Globulin Ratio Vitamin B12 460 TSH 3rd Generation 1.00 Urine Color Urine Clarity Urine pH Ur Specific Waves Urine Protein Urine Glucose (UA) Urine Ketones Urine Blood Urine Nitrate Urine Bilirubin Urine Urobilinogen Ur Leukocyte Esterase Urine RBC (Auto) Urine Microscopic WBC Ur Squamous Epith Cells Urine Bacteria Salicylates Urine Opiates Screen Urine Methadone Screen Acetaminophen Ur Barbiturates Screen Ur Phencyclidine Scrn Ur Amphetamines Screen U Benzodiazepines Scrn U Oth Cocaine Metabols U Cannabinoids Screen Alcohol, Quantitative Review of Systems - Review of Systems All systems: reviewed and no additional remarkable complaints except (as above) Critical Care Progress Note - Nutrition Nutrition: Nutrition Category Date Time Status Regular Diet [DIET] Diets 05/02/17 Breakfast Active
--- NOTE | 2017-05-02 12:56 | CP.PCM.CON ---
History of Present Illness - History of Present Illness History of Present Illness: consult requested as pt admiited due to suicidal attaempt by overdose pt is a 37 years old female with hx of depression and prior suicide attempt,by overdose [id number] after seperation from her brought to the ED after she overdosed on Seroquel. The referred that he called the Police after an argument with his . When the police left, she ingested a handful of Seroquel in a suicidal attempt. pt reported being increasingly overwhelmed, having conflicts with her ex in reference to her 7ys old daughter and also coming to know that she will be layed off her job in one month, pt has been feeling hopeless and helpless, after fighting with her ex started having suicidal thoughts and attempted to end her life by over dosing on seroquel pt denied current suicidal thoughts feeling remorseful for her 7ys old reported decreased sleep increased anxiety , currently non compliant with her psychiatric follow up Past Patient History - Infectious Disease Hx of Infectious Diseases: None - Past Medical History & Family History Past Medical History?: Yes - Past Social History Smoking Status: Never Smoked Chewing Tobacco Use: No Cigar Use: No Alcohol: Social (Last drank 2 days ago) Drugs: Prescription medications, Inhalants Home Situation {Lives}: Alone - CARDIAC Hx Cardiac Disorders: No Hx Hypertension: No - PULMONARY Hx Respiratory Disorders: No Hx Tuberculosis: No - NEUROLOGICAL Hx Seizures: No - HEENT Hx HEENT Problems: No - RENAL Hx Kidney Stones: Yes - ENDOCRINE/METABOLIC Hx Endocrine Disorders: No - HEMATOLOGICAL/ONCOLOGICAL Hx Blood Disorders: No Hx Human Immunodeficiency Virus (HIV): No - INTEGUMENTARY Hx Dermatological Problems: No - MUSCULOSKELETAL/RHEUMATOLOGICAL Hx Musculoskeletal Disorders: No - GASTROINTESTINAL Hx Gastrointestinal Disorders: No - GENITOURINARY/GYNECOLOGICAL Hx Genitourinary Disorders: No Hx Sexually Transmitted Disorders: No - PSYCHIATRIC Hx Depression: Yes Hx Substance Use: No - SURGICAL HISTORY Hx Surgeries: No - ANESTHESIA Hx Anesthesia: No Meds Allergies/Adverse Reactions: Allergies Allergy/AdvReac Type Severity Reaction Status Date / Time No Known Allergies Allergy Verified 09/12/15 12:36 - Medications Medications: Current Medications Enoxaparin Sodium (Lovenox) 40 mg SC DAILY [facility] PRN Reason: Protocol Last Admin: 05/02/17 09:02 Dose: 40 mg Dextrose/Sodium Chloride (Dextrose 5%/0.9% Ns 1000 Ml) 1,000 mls @ 125 mls/hr IV .Q8H [facility] Stop: 05/03/17 00:53 Last Admin: 05/02/17 01:15 Dose: 125 mls/hr Sodium Chloride (Sodium Chloride 0.9%) 1,000 mls @ 1,000 mls/hr IV .Q1H [facility] Stop: 05/03/17 01:53 Last Admin: 05/02/17 02:00 Dose: 1,000 mls/hr Sodium Chloride (Sodium Chloride 0.9%) 1,000 mls @ 1,000 mls/hr IV .Q1H [facility] Stop: 05/03/17 03:41 Last Admin: 05/02/17 03:45 Dose: 1,000 mls/hr Lorazepam (Ativan) 1 mg IVP Q4H PRN PRN Reason: Seizure activity Physical Exam - Psychiatric Exam Additional comments: pt seen in bed, calm cooperative, depressed mood , depressed and tearful affect , psychomotor retardation, speech soft and slow, thought form coherent denied any current suicidal or homicidal ideations, denied perceptual disturbances, alert awake orientedx3 fair insight and judgement, poor impulse control Results - Vital Signs Recent Vital Signs: Last Vital Signs Temp 98.2 F 05/02/17 12:00 Pulse 95 H 05/02/17 12:00 Resp 17 05/02/17 12:00 BP 100/58 L 05/02/17 12:00 Pulse Ox 98 05/02/17 12:00 - Labs Result Diagrams: 05/02/17 06:50 05/02/17 06:50 Labs: Laboratory Results - last 24 hr 05/01/17 05/01/17 05/01/17 22:37 22:37 23:00 WBC RBC Hgb Hct MCV MCH MCHC RDW Plt Count MPV Neut % (Auto) Lymph % (Auto) [place] % (Auto) Eos % (Auto) Baso % (Auto) Neut # Lymph # [place] # Eos # Baso # PT INR APTT Sodium 139 Potassium 4.0 Chloride 106 Carbon Dioxide 25 Anion Gap 12 BUN 14 Creatinine 0.7 Est GFR ( Amer) > 60 Est GFR (Non-Af Amer) > 60 POC Glucose (mg/dL) Random Glucose 122 H Calcium 8.9 Phosphorus 3.3 Magnesium 1.9 Total Bilirubin 0.4 AST 29 ALT 33 Alkaline Phosphatase 62 Total Protein 7.4 Albumin 4.1 Globulin 3.3 Albumin/Globulin Ratio 1.3 Vitamin B12 TSH 3rd Generation Urine Color Yellow Urine Clarity Slighty-cloudy Urine pH 6.0 Ur Specific [place] 1.020 Urine Protein Negative Urine Glucose (UA) Neg Urine Ketones Negative Urine Blood Moderate Urine Nitrate Negative Urine Bilirubin Negative Urine Urobilinogen 0.2-1.0 Ur Leukocyte Esterase Small Urine RBC (Auto) 15 H Urine Microscopic WBC 11 H Ur Squamous Epith Cells 2 Urine Bacteria Rare Salicylates Urine Opiates Screen Negative Urine Methadone Screen Negative Acetaminophen Ur Barbiturates Screen Negative Ur Phencyclidine Scrn Negative Ur Amphetamines Screen Negative U Benzodiazepines Scrn Negative U Oth Cocaine Metabols Negative U Cannabinoids Screen Negative Alcohol, Quantitative < 10 05/01/17 05/01/17 05/01/17 23:00 23:00 23:00 WBC 10.2 RBC 4.20 Hgb 13.1 Hct 39.5 MCV 93.9 MCH 31.2 H MCHC 33.2 RDW 13.2 Plt Count 239 MPV 6.5 L Neut % (Auto) 61.7 Lymph % (Auto) 27.3 [place] % (Auto) 6.8 Eos % (Auto) 3.7 Baso % (Auto) 0.5 Neut # 6.3 Lymph # 2.8 [place] # 0.7 Eos # 0.4 Baso # 0.0 PT 10.5 INR 1.0 APTT 26.9 Sodium Potassium Chloride Carbon Dioxide Anion Gap BUN Creatinine Est GFR ( Amer) Est GFR (Non-Af Amer) POC Glucose (mg/dL) Random Glucose Calcium Phosphorus Magnesium Total Bilirubin AST ALT Alkaline Phosphatase Total Protein Albumin Globulin Albumin/Globulin Ratio Vitamin B12 TSH 3rd Generation Urine Color Urine Clarity Urine pH Ur Specific [place] Urine Protein Urine Glucose (UA) Urine Ketones Urine Blood Urine Nitrate Urine Bilirubin Urine Urobilinogen Ur Leukocyte Esterase Urine RBC (Auto) Urine Microscopic WBC Ur Squamous Epith Cells Urine Bacteria Salicylates < 1.0 Urine Opiates Screen Urine Methadone Screen Acetaminophen < 10.0 L Ur Barbiturates Screen Ur Phencyclidine Scrn Ur Amphetamines Screen U Benzodiazepines Scrn U Oth Cocaine Metabols U Cannabinoids Screen Alcohol, Quantitative 05/01/17 05/02/17 05/02/17 23:53 01:58 06:50 WBC 8.8 RBC 3.30 L Hgb 10.3 L D Hct 31.4 L MCV 95.1 MCH 31.3 H MCHC 32.9 L RDW 13.2 Plt Count 180 MPV Neut % (Auto) Lymph % (Auto) [place] % (Auto) Eos % (Auto) Baso % (Auto) Neut # Lymph # [place] # Eos # Baso # PT INR APTT Sodium Potassium Chloride Carbon Dioxide Anion Gap BUN Creatinine Est GFR ( Amer) Est GFR (Non-Af Amer) POC Glucose (mg/dL) 91 116 H Random Glucose Calcium Phosphorus Magnesium Total Bilirubin AST ALT Alkaline Phosphatase Total Protein Albumin Globulin Albumin/Globulin Ratio Vitamin B12 TSH 3rd Generation Urine Color Urine Clarity Urine pH Ur Specific [place] Urine Protein Urine Glucose (UA) Urine Ketones Urine Blood Urine Nitrate Urine Bilirubin Urine Urobilinogen Ur Leukocyte Esterase Urine RBC (Auto) Urine Microscopic WBC Ur Squamous Epith Cells Urine Bacteria Salicylates Urine Opiates Screen Urine Methadone Screen Acetaminophen Ur Barbiturates Screen Ur Phencyclidine Scrn Ur Amphetamines Screen U Benzodiazepines Scrn U Oth Cocaine Metabols U Cannabinoids Screen Alcohol, Quantitative 05/02/17 05/02/17 06:50 07:00 WBC RBC Hgb Hct MCV MCH MCHC RDW Plt Count MPV Neut % (Auto) Lymph % (Auto) [place] % (Auto) Eos % (Auto) Baso % (Auto) Neut # Lymph # [place] # Eos # Baso # PT INR APTT Sodium 142 Potassium 3.8 Chloride 115 H Carbon Dioxide 21 L Anion Gap 10 BUN 9 Creatinine 0.7 Est GFR ( Amer) > 60 Est GFR (Non-Af Amer) > 60 POC Glucose (mg/dL) Random Glucose 117 H Calcium 7.0 L Phosphorus Magnesium Total Bilirubin AST ALT Alkaline Phosphatase Total Protein Albumin Globulin Albumin/Globulin Ratio Vitamin B12 460 TSH 3rd Generation 1.00 Urine Color Urine Clarity Urine pH Ur Specific [place] Urine Protein Urine Glucose (UA) Urine Ketones Urine Blood Urine Nitrate Urine Bilirubin Urine Urobilinogen Ur Leukocyte Esterase Urine RBC (Auto) Urine Microscopic WBC Ur Squamous Epith Cells Urine Bacteria Salicylates Urine Opiates Screen Urine Methadone Screen Acetaminophen Ur Barbiturates Screen Ur Phencyclidine Scrn Ur Amphetamines Screen U Benzodiazepines Scrn U Oth Cocaine Metabols U Cannabinoids Screen Alcohol, Quantitative Assessment & Plan - Assessment and Plan (Free Text) Assessment: major depression recurrent severe without psychotic features continue 1:1 for pt safety pt would benifit from admission to psychiatric unit after medical clearance for further stabilization pt agreed to sign voluntary start lexapro 5mg - Date & Time Date: 05/02/17 Time: 12:56
--- NOTE | 2017-05-02 18:21 | CARD ---
APPROVED REPORT EKG Measurement Heart [id number] <Conclusion> Normal sinus rhythm Normal ECG
--- NOTE | 2017-05-02 18:26 | CARD ---
APPROVED REPORT EKG Measurement Heart [id number] <Conclusion> Normal sinus rhythm Possible Left atrial enlargement Borderline ECG
[2017-05-02] MEDS ORDERED: Influenza Vaccine 18yr & older 0.5 ML/45 MCG SYR IM ONE (20:00)
[2017-05-02] MEDS ORDERED: Pneumococcal 23-Valent Vaccine IM ONE (20:00)
[2017-05-03] MEDS: Sodium Chloride 0.9% 1,000 ML IV SCH ×2 (03:55→16:26)
[2017-05-03 06:55] LABS: HEMATOCRIT 32.9 % (34.0-47.0); MEAN CELL VOLUME 94.3 fl (81.0-99.0); MEAN CORPUSCULAR HEMOGLOBIN 32.1 pg (27.0-31.0); RED CELL DISTRIBUTION WIDTH 13.3 % (11.5-14.5); WHITE BLOOD COUNT 8.7 K/uL (4.8-10.8)
[2017-05-03 07:40] LABS: ALB/GLOB RATIO 1.1 (1.0-2.1); ALKALINE PHOSPHATASE 48 U/L (38-126); ALT/SGPT 72 U/L (9-52); AST/SGOT 46 U/L (14-36); BILIRUBIN,TOTAL 0.4 mg/dl (0.2-1.3); BLOOD UREA NITROGEN 7 mg/dl (7-17); CARBON DIOXIDE 29 mmol/L (22-30); CHLORIDE 108 mmol/L (98-107); CHOLESTEROL 108 mg/dL (0-199); GFR AFRICAN-AMERICAN > 60; GLUCOSE,RANDOM 77 mg/dL (65-105); POTASSIUM 4.2 MMOL/L (3.6-5.0); SODIUM 141 mmol/l (132-148); TOTAL PROTEIN 5.9 G/DL (6.3-8.2)
[2017-05-03] MEDS: Enoxaparin 40 mg Syringe SC SCH ×2 (09:26→09:31)
--- NOTE | 2017-05-03 10:05 | PN ---
DATE: 05/03/2017 SUBJECTIVE: The patient is seen and examined. Interim events noted. Consults noted and appreciated. Psychiatry intervention noted and appreciated. The patient is transferred to regular floor with one-to-one observation. The patient feels okay. Denies any specific medical complaint. No dizziness. No loss of consciousness. No chest pain or shortness of breath. PHYSICAL EXAMINATION: GENERAL: The patient is in no acute distress. VITAL SIGNS: Stable. HEART: S1 and S2, normal and regular. LUNGS: Good bilateral air exchange. ABDOMEN: Soft, nontender. EXTREMITIES: No edema. No calf swelling. No tenderness. No acute ischemia. CENTRAL NERVOUS SYSTEM: Essentially unchanged. DIAGNOSTIC DATA: Available diagnostic data reviewed. ASSESSMENT AND PLAN: Overall, the patient is medically stable. Still remains on one-to-one observation as recommended by Psychiatry. Overall, the patient is clinically stable. Plan as ordered. Juan Miguel Lilly MD
--- NOTE | 2017-05-04 08:32 | PN ---
DATE: 05/04/2017 SUBJECTIVE: The patient is seen and examined. Interim events noted. The patient remains in regular medical floor with one-to-one observation. Denies any specific medical complaint. The patient is awake, responsive, ambulatory, doing her ADLs by herself without assistance. No chest pain or shortness of breath. PHYSICAL EXAMINATION: GENERAL: The patient is in no acute distress. VITAL SIGNS: Stable. HEART: S1 and S2, normal and regular. LUNGS: Good bilateral air exchange. ABDOMEN: Soft, nontender. EXTREMITIES: No edema. No calf swelling. No tenderness. No acute ischemia. CENTRAL NERVOUS SYSTEM: Essentially unchanged. DIAGNOSTIC DATA: Available diagnostic data reviewed. ASSESSMENT AND PLAN: Overall, the patient is clinically stable. Plan as ordered. The patient is awaiting for involuntary confinement evaluation by [facility] today. Juan Miguel Lilly MD
[2017-05-04] MEDS: Enoxaparin 40 mg Syringe SC SCH (09:26)
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
[2017-05-05 06:31] LABS: HEMATOCRIT 39.7 % (34.0-47.0); MEAN CELL VOLUME 93.4 fl (81.0-99.0); MEAN CORPUSCULAR HEMOGLOBIN 31.4 pg (27.0-31.0); MEAN CORPUSCULAR HGB CONC 33.6 g/dL (33.0-37.0); RED CELL DISTRIBUTION WIDTH 13.2 % (11.5-14.5); WHITE BLOOD COUNT 10.7 K/uL (4.8-10.8)
[2017-05-05 06:51] LABS: ALB/GLOB RATIO 1.3 (1.0-2.1); ALKALINE PHOSPHATASE 69 U/L (38-126); ALT/SGPT 65 U/L (9-52); AST/SGOT 31 U/L (14-36); BILIRUBIN,TOTAL 0.3 mg/dl (0.2-1.3); BLOOD UREA NITROGEN 15 mg/dl (7-17); CARBON DIOXIDE 26 mmol/L (22-30); CHLORIDE 104 mmol/L (98-107); GFR AFRICAN-AMERICAN > 60; GLUCOSE,RANDOM 89 mg/dL (65-105); POTASSIUM 4.4 MMOL/L (3.6-5.0); SODIUM 140 mmol/l (132-148); TOTAL PROTEIN 7.3 G/DL (6.3-8.2)
[2017-05-05] MEDS: Enoxaparin 40 mg Syringe SC SCH (08:42)
--- NOTE | 2017-05-05 08:55 | CP.PCM.PCO ---
Physician Communication Note - Physician Communication Note Physician Communication Note: Patient screened by [facility] and accepted, pending bed , continue 1:1
--- NOTE | 2017-05-05 09:15 | PN ---
DATE: 05/05/2017 SUBJECTIVE: The patient is seen and examined. Interim events noted. Consults noted and appreciated. Psychiatry followup and intervention noted and appreciated. Case discussed with psychiatrist, Dr. Robles today. The patient feels better. Denies any specific medical complaint. No dizziness. No loss of consciousness. No chest pain. No shortness of breath. PHYSICAL EXAMINATION: GENERAL: The patient is in no acute distress. VITAL SIGNS: Stable. HEART: S1 and S2, normal and regular. LUNGS: Good bilateral air exchange. ABDOMEN: Soft, nontender. EXTREMITIES: No edema. No calf swelling. No tenderness. No acute ischemia. CENTRAL NERVOUS SYSTEM: Essentially unchanged. DIAGNOSTIC DATA: Available diagnostic data reviewed. ASSESSMENT AND PLAN: Overall, the patient is medically stable. Still requires one-to-one observation. The patient had agreed for inpatient psychiatric treatment voluntarily, but now the patient seems to be reluctant about it. Case discussed with Dr. Robles. The patient will need screening. Plan as ordered. Case and plan discussed with the patient. Juan Miguel Lilly MD
--- NOTE | 2017-05-05 09:26 | HP ---
CHIEF COMPLAINT: Drug overdose. HISTORY OF PRESENT ILLNESS: This is a 37-year-old female without significant past medical history, who had argument with her and took a handful of Seroquel and was brought to emergency room and was admitted for further management. REVIEW OF SYSTEMS: At this time is positive for drowsiness and lethargy. Review of systems, otherwise, is negative for headache, dizziness, syncope, loss of consciousness, chest pain, shortness of breath, nausea, vomiting, diarrhea, constipation, any new joint or extremity pain. Review of systems of all other organ system is unremarkable. Patient also expressed that she was suicidal at that time, but currently she does not feel same. PAST MEDICAL HISTORY: Unremarkable. PAST SURGICAL HISTORY: Remarkable for kidney stone. PERSONAL HISTORY: Patient is currently nonsmoker, nondrinker, no substance abuse. MEDICATIONS: Patient is on no medication. Seroquel was prescribed in the past for insomnia. ALLERGIES: PATIENT IS NOT ALLERGIC TO ANY MEDICATION. FAMILY HISTORY: Noncontributory. PHYSICAL EXAMINATION: GENERAL: Well-built, well-nourished, 37-year-old female, in no acute distress. VITAL SIGNS: Temperature 98.5, pulse 95, respirations 16, blood pressure 90/50. HEENT: Pupils are reacting to light. No JVD. No thyromegaly. No lymphadenopathy. No nystagmus. Normocephalic, atraumatic skull. HEART: S1 and S2 normal, regular. No significant murmur, gallop, or rub is heard. LUNGS: Shows good bilateral air exchange. No rales or rhonchi. ABDOMEN: Soft, nontender. No organomegaly. No fluid. Bowel sounds are present. EXTREMITIES: No edema. No calf swelling. No tenderness. No acute ischemia. CENTRAL NERVOUS SYSTEM: Patient is alert, awake, oriented x3. Little bit sleepy, but no sign of any acute gross focal motor or sensory neurological deficit. DIAGNOSTIC DATA: Available diagnostic data reviewed. WBC 10.2, hemoglobin 13, hematocrit 39.5, platelets 239. PT and PTT unremarkable. Sodium 139, potassium 4.0, chloride 106, bicarb 25, BUN 14, creatinine 0.7. SMA-12 is unremarkable. Urinalysis is unremarkable. Drug toxicology is negative. EKG does not reveal any acute ST-T changes. Chest x-ray is clear. ADMITTING IMPRESSION: Drug overdose, questionable suicidal attempt. PLAN: As ordered. Case and plan discussed with patient. Telemetry monitoring does not show any significant arrhythmia. Juan Miguel Lilly MD
--- NOTE | 2017-05-05 14:34 | CP.PCM.CON ---
History of Present Illness - History of Present Illness History of Present Illness: Psychiatry consult follow-up CC: "I don't need to be in the hospital." HPI: 37 yo female s/p suicide attempt by overdose on Seroquel, which the patient now denies. Patient continues to have poor insight and judgment. She does not believe she needs to be in a psychiatry unit and is opposed to the idea of being on a locked unit. Patient was evaluated by the psychiatrist and [employer] who recommend inpatient psychiatrist admission. Patient was [place] by [facility] and accepted for involuntary commitment. Pneumatic Press Hand spoke to patient at length about the involuntary inpatient admission process. Patient is still not agreeable to voluntary admission at this time. Patient continues to minimize why she is in the hospital. 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 Impression: 37 yo female w/ MDD, need acute inpatient psychiatric admission. -Transfer to [facility] when bed is available -Continue Lexapro Past Patient History - Infectious Disease Hx of Infectious Diseases: None - Past Medical History & Family History Past Medical History?: Yes Past Family History: Reviewed and not pertinent - Past Social History Alcohol: Social (Last drank 2 days ago) Drugs: Prescription medications - CARDIAC Hx Hypertension: No - PULMONARY Hx Respiratory Disorders: No Hx Tuberculosis: No - NEUROLOGICAL Hx Seizures: No - HEENT Hx HEENT Problems: No - RENAL Hx Kidney Stones: Yes - ENDOCRINE/METABOLIC Hx Endocrine Disorders: No - HEMATOLOGICAL/ONCOLOGICAL Hx Human Immunodeficiency Virus (HIV): No - INTEGUMENTARY Hx Dermatological Problems: No - MUSCULOSKELETAL/RHEUMATOLOGICAL Hx Musculoskeletal Disorders: No - GASTROINTESTINAL Hx Gastrointestinal Disorders: No - GENITOURINARY/GYNECOLOGICAL Hx Sexually Transmitted Disorders: No - PSYCHIATRIC Hx Depression: Yes Hx Substance Use: No - SURGICAL HISTORY Hx Surgeries: No - ANESTHESIA Hx Anesthesia: No Meds Allergies/Adverse Reactions: Allergies Allergy/AdvReac Type Severity Reaction Status Date / Time No Known Allergies Allergy Verified 09/12/15 12:36 - Medications Medications: Current Medications Acetaminophen (Tylenol 325mg Tab) 650 mg PO Q6 PRN PRN Reason: Headache Last Admin: 05/04/17 16:55 Dose: 650 mg Enoxaparin Sodium (Lovenox) 40 mg SC DAILY [facility] PRN Reason: Protocol Last Admin: 05/05/17 08:42 Dose: Not Given Escitalopram Oxalate (Lexapro) 5 mg PO DAILY [facility] Last Admin: 05/05/17 08:42 Dose: 5 mg Results - Vital Signs Recent Vital Signs: Last Vital Signs Temp 97.8 F 05/05/17 07:39 Pulse 85 05/05/17 07:39 Resp 20 05/05/17 07:39 BP 97/66 L 05/05/17 07:39 Pulse Ox 98 05/05/17 07:39 - Labs Result Diagrams: 05/05/17 05:40 05/05/17 05:40 Labs: Laboratory Results - last 24 hr 05/05/17 05/05/17 05:40 05:40 WBC 10.7 RBC 4.25 Hgb 13.3 D Hct 39.7 MCV 93.4 MCH 31.4 H MCHC 33.6 RDW 13.2 Plt Count 268 Sodium 140 Potassium 4.4 Chloride 104 Carbon Dioxide 26 Anion Gap 14 BUN 15 Creatinine 0.8 Est GFR ( Amer) > 60 Est GFR (Non-Af Amer) > 60 Random Glucose 89 Calcium 9.0 Total Bilirubin 0.3 AST 31 ALT 65 H Alkaline Phosphatase 69 Total Protein 7.3 Albumin 4.1 Globulin 3.2 Albumin/Globulin Ratio 1.3
[2017-05-06 08:01] VITALS: BP 112/75; PULSE 94; RESP 18; TEMP 98; O2SAT 97
[2017-05-06] MEDS: Enoxaparin 40 mg Syringe SC SCH (08:25)
--- NOTE | 2017-05-06 09:11 | CP.PCM.PN ---
Subjective - Date & Time of Evaluation Date of Evaluation: 05/06/17 Time of Evaluation: 08:05 - Subjective Subjective: Patient seen and examined with attending bedside. Patient sitting on bed reports that she wants to go home to continue with her daily activities and she does not want to continue hospitalized. pt explained by Dr Lilly the policy to follow. Pt verbalized understanding. Patient's present. She denies fever , chest pain, SOB, n,v, abd pain. continues 1:1 Objective - Vital Signs/Intake and Output Vital Signs (last 24 hours): Temp Pulse Resp BP Pulse Ox 98 F 94 H 18 112/75 97 05/06/17 08:01 05/06/17 08:01 05/06/17 08:01 05/06/17 08:01 05/06/17 08:01 - Medications Medications: Current Medications Acetaminophen (Tylenol 325mg Tab) 650 mg PO Q6 PRN PRN Reason: Headache Last Admin: 05/04/17 16:55 Dose: 650 mg Enoxaparin Sodium (Lovenox) 40 mg SC DAILY [facility] PRN Reason: Protocol Last Admin: 05/06/17 08:25 Dose: Not Given Escitalopram Oxalate (Lexapro) 5 mg PO DAILY [facility] Last Admin: 05/06/17 08:24 Dose: 5 mg - Labs Labs: 05/05/17 05:40 05/05/17 05:40 PT 10.5 Seconds (9.8-13.1) 05/01/17 23:00 INR 1.0 (0.9-1.2) 05/01/17 23:00 APTT 26.9 Seconds (25.6-37.1) 05/01/17 23:00 - Constitutional Appears: Non-toxic, No Acute Distress - Head Exam Head Exam: ATRAUMATIC, NORMOCEPHALIC - Eye Exam Eye Exam: Normal appearance - ENT Exam ENT Exam: Normal Exam - Neck Exam Neck Exam: Normal Inspection - Respiratory Exam Respiratory Exam: Clear to Ausculation Bilateral. absent: Rales, Rhonchi, Wheezes - Cardiovascular Exam Cardiovascular Exam: REGULAR RHYTHM, +S1 - GI/Abdominal Exam GI & Abdominal Exam: Soft, Normal Bowel Sounds. absent: Tenderness - Extremities Exam Extremities Exam: Full ROM - Back Exam Back Exam: NORMAL INSPECTION - Neurological Exam Neurological Exam: Alert, Awake, Oriented x3 - Psychiatric Exam Psychiatric exam: Normal Affect - Skin Skin Exam: Intact Assessment and Plan - Assessment and Plan (Free Text) Plan: 37 yo ,f, PMhx/o depression admitted for suicidal attempt with seroquel ingestion Assessment/Plan 1)Suicidal attempt -seroquel overdose -stable -waiting for final disposition for involuntary confinent [place] [facility] [place] 1:1 -Psych consult appreciated 2) Depression c/w lexapro 3) DVT prophylaxis -Lovenox
--- NOTE | 2017-05-06 09:55 | CP.PCM.PCO ---
Physician Communication Note - Physician Communication Note Physician Communication Note: Patient has capacity to sign in for voluntary admission if she is agreeable
== END 2017-05-06 14:20 | DRG 918 ==
LOC: H.ER 22:11 → H.ERHOLD 23:37 → H.ICU/CCU 05-02 01:22 → OBSVTOIN 05-02 11:29 → H.MEDSURG1 05-02 17:21
PROVIDERS: ADMIT Internal Medicine; ATTEND Internal Medicine
DX: T43.592A Poisoning by other antipsychotics and neuroleptics, intentional self-harm, initial encounter (principal); F32.1 Major depressive disorder, single episode, moderate; G47.00 Insomnia, unspecified; R53.83 Other fatigue; Y92.9 Unspecified place or not applicable; R00.1 Bradycardia, unspecified; D64.9 Anemia, unspecified

== ENCOUNTER 2017-05-04 16:27 | Inpatient (IN) | payer OTHER ==
[2017-05-06] MEDS ORDERED: Alum-Mag Hydrox-Simethicone Susp (30 mL) PO PRN (15:29)
[2017-05-06] MEDS ORDERED: Magnesium Hydroxide Susp 30 ml UD PO PRN (15:29)
[2017-05-06] MEDS ORDERED: DiphenhydrAMINE 50 mg/ml Inj IM PRN (15:29)
--- NOTE | 2017-05-06 15:29 | CP.PCM.DIS ---
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 Patient was in floor, evaluated and treated by psych. Patient kept 1:1. Final disposition for [facility] was pending. Pt was discharged to our psych unit today for further treatment. assessment/Plan 37 yo ,f, PMhx/o depression admitted for suicidal attempt with seroquel ingestion Assessment/Plan 1)Suicidal attempt -seroquel overdose -stable -waiting for final disposition for involuntary confinent [place] [facility] [place]continue 1:1 -Psych consult appreciated 2) Depression c/w lexapro 3) DVT prophylaxis -Lovenox Discharge Exam - Head Exam Head Exam: ATRAUMATIC, NORMOCEPHALIC - Eye Exam Eye Exam: Normal appearance - Neck Exam Neck exam: Full Rom - Respiratory Exam Respiratory Exam: Clear to PA & Lateral. absent: Rales, Rhonchi, Wheezes - Cardiovascular Exam Cardiovascular Exam: REGULAR RHYTHM, +S1, +S2 - GI/Abdominal Exam GI & Abdominal Exam: Normal Bowel Sounds. absent: Guarding, Rebound - Extremities Exam Extremities exam: normal inspection - Neurological Exam Neurological exam: Alert, Altered, Oriented x3 - Psychiatric Exam Psychiatric exam: Normal Mood - Skin Skin Exam: Dry, Intact Discharge Plan - Discharge Medications Prescriptions: traZODone [Desyrel] 50 mg PO HS 30 Days #30 tab Escitalopram [Lexapro] 10 mg PO DAILY 30 Days #30 tab - Follow Up Plan Condition: GOOD Disposition: HOME/ ROUTINE Instructions: Depression (DC) <Juan Miguel Lilly - Last Filed: 05/16/17 12:18> Provider - Provider Date of Admission: 05/06/17 14:30 Attending physician: Ankush Brower MD Hospital Course - Lab Results Lab Results: Most Recent Lab Values Hemoglobin A1c 5.1 % (4.2-6.5) 05/07/17 07:00 Triglycerides 35 mg/DL (0-149) 05/07/17 07:00 Cholesterol 151 mg/dL (0-199) 05/07/17 07:00 LDL Cholesterol Direct 83 mg/dL (0-129) 05/07/17 07:00 HDL Cholesterol 52 MG/DL (30-70) 05/07/17 07:00
--- NOTE | 2017-05-06 15:51 | PCM.PSYCH ---
Initial Psychiatric Evaluation - Initial Psychiatric Evaluation Type of Admission: Voluntary Legal Status: Capacity Chief Complaint (in patient's own words): I need a break to care for myself and my daughter Patient's Reaction to Hospitalization: pt agreed to sign voluntary History of Present Illness and Precipitating Events: pt is a 37 years old female with hx of depression and prior suicide attempt,by overdose in 2014 after seperation from her pt was brought to the ED after she overdosed on Seroquel. according to the referred thathe called the Police after an argument with his . When the police left, she ingested a handful of Seroquel in a suicidal attempt. pt reported being increasingly overwhelmed, having conflicts with her ex in reference to her 7ys old daughter and also coming to know that she will be terminated from her job in one month, pt has been feeling hopeless and helpless, after fighting with her ex started having suicidal thoughts and attempted to end her life by over dosing on seroquel pt denied current suicidal thoughts feeling remorseful for her 7ys old reported decreased sleep increased anxiety , currently non compliant with her psychiatric follow up Current Medications: Active Medications Generic Name Dose Route Start Last Admin Trade Name Freq PRN Reason Stop Dose Admin Acetaminophen 650 mg 05/06/17 15:29 Tylenol 325mg Tab PO Q4 PRN Pain, moderate (4-7) Al Hydrox/Mg Hydrox/Simethicone 30 ml 05/06/17 15:29 Maalox Plus 30 Ml PO Q4 PRN Dyspepsia Diphenhydramine HCl 50 mg 05/06/17 15:29 Benadryl IM Q6 PRN Extrapyramidal S/S Unable PO Diphenhydramine HCl 50 mg 05/06/17 15:29 Benadryl PO Q6 PRN Extrapyramidal Symptoms Escitalopram Oxalate 10 mg 05/07/17 09:00 Lexapro PO DAILY [facility] Haloperidol 5 mg 05/06/17 15:29 Haldol PO Q4 PRN Agitation Haloperidol Lactate 5 mg 05/06/17 15:29 Haldol IM Q4 PRN Agitation, Unable to Take PO Lorazepam 2 mg 05/06/17 15:29 Ativan IM Q4 PRN Anxiety/Agitation,Unable PO Lorazepam 2 mg 05/06/17 15:29 Ativan PO Q4 PRN Anxiety/Agitation Magnesium Hydroxide 30 ml 05/06/17 15:29 Milk Of Magnesia PO HS PRN Constipation Trazodone HCl 50 mg 05/06/17 22:00 Desyrel PO HS [facility] Past Psychiatric History - Past Psychiatric History Previous Treatment History: Inpatient Prior Psychiatric Treatment: no hx of previous psychiatric hospitalization Explanation of prior treatment: pt attempted suicide in 2014, started outpatient treatment but was non compliant currently in out patient counseling with therapist for seperation from History of Abuse: denied History of ETOH/Drug Use: denied History of Family Illness: denied Pertinent Medical Hx (Current Medical&Sleep Prob, Allergies): Allergies Allergy/AdvReac Type Severity Reaction Status Date / Time No Known Allergies Allergy Verified 09/12/15 12:36 Acetaminophen [Tylenol 325mg tab] 650 mg PO Q6 PRN tab 05/06/17 Escitalopram [Lexapro] 5 mg PO DAILY tab 05/06/17 no reported medical problems Mental Status Examination - Personal Presentation Personal Presentation: Looks stated age - Affect Affect: Constricted - Motor Activity Motor Activity: Calm - Reliability in Providing Information Reliability in Providing Information: Fair - Speech Speech: Organized - Mood Mood: Depressed, Anxious - Formal Thought Process Formal Thought Process: No Impairment - Hallucinations/Delusions Additional comments: pt denied perceptual disturbances non elicited - Obsessions/Compulsions Obsessions: No Compulsions: No - Cognitive Functions Orientation: Person, Place Sensorium: Alert Judgement: Imparied, as evidence by: Poor judgement Additional comments: poor impulse control - Risk Risk: Suicidal, Diminished functioning - Strength & Assets Inventory Strength & Assets Inventory: Intelligence, Family support, Employment history - Limitations Additional comments: poor impulse control DSM 5 DX - DSM 5 DSM 5 Diagnosis: major depression recurrent severe - Recommended/Plan of Treatment Treatment Recommendations and Plan of Treatment: increase lexapro to 10mg trazodone 50mg qhs CBT and suppoerive, group therapy Projected ELOS: 3 days Prognosis: fair Discharge Plan and Discharge Criteria: pt mood stable
[2017-05-06 17:30] VITALS: RESP 20
--- NOTE | 2017-05-06 19:13 | PCM.BM ---
<Lana Woods - Last Filed: 05/06/17 19:12> Treatment Plan Problems - Problems identified on initial assessmt Feelings of Worthlessness Date Initiated: 05/06/17 Time Initiated: 19:12 Assessment reference: NA Status: Active Treatment assets and liabiliti Patient Assests: educated, insightful, ADL independent, physically healthy Patient Liabilities: relationship conflicts, other (social stressors) - Milieu Protocol Maintain good personal hygiene: daily Encourage regular showers, daily Remind patient to perform daily oral care, daily Assist patient to perform ADL's Maintain personal safety: daily Educate patient to report safety concerns to staff, daily Monitor environment for contraband/sharps, every shift Educate patient to report safety concerns to staff, every shift Monitor environment for contraband/sharps Medication safety: Monitor for expected outcome, potential side effects: daily, every shift, Assess barriers to learning: daily, every shift, Assess readiness for medication education: daily, every shift Milieu Narrative: increase lexapro to 10mg trazodone 50mg qhs CBT and suppoerive, group therapy Discharge/Continuing Care - Treatment Team Participation Patient/Family/SO Statement: increase lexapro to 10mg trazodone 50mg qhs CBT and suppoerive, group therapy <Ankush Brower - Last Filed: 05/16/17 13:52> - Diagnosis (1) Depression (emotion) Status: Acute Interventions: 05/07/17 11:40 pharmacotherapy psychotherapy
[2017-05-07 09:00] LABS: CHOLESTEROL 151 mg/dL (0-199)
--- NOTE | 2017-05-07 09:12 | CON ---
MEDICAL CONSULTATION DATE OF ADMISSION TO PSYCH UNIT: 05/06/2017. HISTORY OF PRESENT ILLNESS: This is a 37-year-old female without significant past medical history, but long history of anxiety, depression and prior overdose attempt in 2016, who was admitted to medical service after Seroquel overdose with attempted suicidal attempt. The patient was medically stabilized and was transferred to voluntary psych unit admission for further management of psychiatric issues. PAST MEDICAL HISTORY: Unremarkable. PAST PSYCHIATRIC HISTORY: Remarkable for anxiety, depression. PERSONAL HISTORY: The patient is currently nonsmoker, nondrinker. No substance abuse. MEDICATIONS: The patient is on multiple medication, which is as per reconciliation sheet, which was reviewed and ordered. ALLERGIES: THE PATIENT IS NOT ALLERGIC TO ANY MEDICATIONS. FAMILY HISTORY: Noncontributory. REVIEW OF SYSTEMS: At this time is negative for headache, dizziness, syncope, loss of consciousness, chest pain, shortness of breath, nausea, vomiting, diarrhea, constipation or any new joint or extremity pain. Review of systems is positive for psychiatric issues as per psychiatric evaluation. Review of systems of all other organ system is unremarkable. PHYSICAL EXAMINATION: GENERAL: A well-built, well-nourished 37-year-old female, in no acute distress. VITAL SIGNS: Temperature afebrile, pulse 50, respirations 18, blood pressure 126/76. HEENT: Pupils reacting to light. No JVD. No thyromegaly. No lymphadenopathy. No nystagmus. Normocephalic, atraumatic skull. HEART: S1 and S2. Normal and regular. No significant murmur, gallop or rub is heard. LUNGS: Shows good bilateral air exchange. No rales or rhonchi. ABDOMEN: Soft, nontender. No organomegaly. No fluid. Bowel sounds are plus. EXTREMITIES: No edema. No calf swelling. No tenderness. No acute ischemia. CENTRAL NERVOUS SYSTEM: Essentially unchanged and there is no sign of any acute gross focal motor or sensory neurological deficit. DIAGNOSTIC DATA: Available diagnostic data reviewed. ADMITTING IMPRESSION: Drug overdose, anxiety, depression. PLAN: As ordered. Case and plan discussed with the patient and nursing staff and psychiatrist. Juan Miguel Lilly MD
[2017-05-07 09:17] VITALS: TEMP 96.4
[2017-05-07] MEDS ORDERED: Nasal Spray(Ocean spray) NAS PRN (10:18)
[2017-05-07 11:20] VITALS: BP 145/72; PULSE 91
--- NOTE | 2017-05-07 13:42 | PCM.PYCHDC ---
Mental Status Examination - Mental Status Examination Orientation: Person, Place, Situation Memory: Intact Mood: Neutral Affect: Broad Speech: Appropriate Attention: WNL Concentration: WNL Association: WNL Fund of Knowledge: WNL Formal Thought Process: No Impairment Description of patient's judgement and insight: fair insight and judgement Psychotic Thoughts and Behaviors: pt denied psychotic symptoms , non eliicted Suicidal Ideation: No Current Homicidal Ideation?: No Discharge Summary - Discharge Note Reason for Hospitalization: pt agreed to sign voluntary pt is a 37 years old female with hx of depression and prior suicide attempt,by overdose in 2014 after seperation from her pt was brought to the ED after she overdosed on Seroquel. according to the referred thathe called the Police after an argument with his . When the police left, she ingested a handful of Seroquel in a suicidal attempt. pt reported being increasingly overwhelmed, having conflicts with her ex in reference to her 7ys old daughter and also coming to know that she will be terminated from her job in one month, pt has been feeling hopeless and helpless, after fighting with her ex started having suicidal thoughts and attempted to end her life by over dosing on seroquel pt denied current suicidal thoughts feeling remorseful for her 7ys old reported decreased sleep increased anxiety , currently non compliant with her psychiatric follow up Laboratory Data: Abnormal Lab Results 05/07/17 07:00 Triglycerides 35 Cholesterol 151 LDL Cholesterol Direct 83 HDL Cholesterol 52 Consultations:: List each consultation separately and include: 1. Reason for request. 2. Findings. 3. Follow-up Summary of Hospital Course include:: 1. Description of specific treatment plan utilized for patients during their course of treatmen. 2. Summarize the time- course for resolution of acute symptoms and/or regressed behaviors. 3. Describe issues identified and worked on during hospitalization. 4. Describe medication utilized. 5. Describe medical problems identified and treated. 6. Reassessment of suicide risk Summary of Hospital Course: pt on admission started on lexapro 10mg trazodone 50mg qhs no reported side effects of medications CBT and group therapy provided denied any side effect of medications on discharge mental status was stable, at current mental status denied s/h i DENIED perceptual disturbances follow up with [facility] - Diagnosis (1) Depression (emotion) Current Visit: Yes Status: Acute - Final Diagnosis (DSM 5) Condition upon Discharge: GOOD Disposition: HOME/ ROUTINE Follow-up Treatment Plan: increase lexapro to 10mg trazodone 50mg qhs CBT and suppoerive, group therapy Prescriptions/Medication Reconciliation: Escitalopram [Lexapro] 10 mg PO DAILY 30 Days #30 tab traZODone [Desyrel] 50 mg PO HS 30 Days #30 tab
== END 2017-05-07 15:27 | disposition home or self-care (01) | DRG 881 ==
LOC: H.PSYCH 05-06 14:30
PROVIDERS: ADMIT Psychiatry & Neurology Psychiatry; ATTEND Psychiatry & Neurology Psychiatry
PROC: GZHZZZZ Group Psychotherapy (ICD-10-PCS; principal; 2017-05-06)
PROC: GZ58ZZZ Individual Psychotherapy, Cognitive-Behavioral (ICD-10-PCS; 2017-05-06)
DX: F32.9 Major depressive disorder, single episode, unspecified (principal); Z91.19 Patient's noncompliance with other medical treatment and regimen; F41.9 Anxiety disorder, unspecified; Z91.5 Personal history of self-harm